=== PATIENT | female | born 1945 | race Caucasian/White ===

== ENCOUNTER → 2017-11-03 15:51 | Outpatient (CLI) | payer MEDICARE, OTHER, SELFPAY | PROVIDERS: Visit Provider Otolaryngology Otolaryngology/Facial Plastic Surgery | DX: J32.9 Chronic sinusitis, unspecified (principal) | CPT/HCPCS: 87070; 87205 ==

== ENCOUNTER → 2018-04-20 12:46 | Outpatient (CLI) | payer MEDICARE, SELFPAY ==
--- NOTE | 2018-04-20 | IMM_PTH ---
PATIENT: HIWOT PALMER LOC: [facility] U#:[id number] AGE/SX: 80/F ROOM: RE04/20/[address]: Dr. Serene Donnelly MD : 1945 BED: DIS: SPEC #: [id number] RECD: 04/25/18 10:26 STATUS: MARTÍN REQ #: [id number] MADHAV: 04/20/18 00:[address]: Serene Donnelly DEPT: IMMUNOHISTOCHEMISTRY RECD BY: Haritha Shepard ENTERED: 04/25/18 10:27 SP TYPE: IMMUNO OTHR DR: Dr. Will Yu MD Tissues: Endometrium, NOS Procedures: CEA (add) CK20 (add) CK7 (add) CK8 (add) KI-67 (add) P53 (add) KY (add) Vimentin (add) Pankeratin (add) ER (initial) PHYSICIAN & INSTITUTION [place] [id number] SPECIMEN INFORMATION: Tissue Source: Endometrial biopsy Clinical Info: Postmenopausal bleeding Specimen Number: [id number] CPT code: 37799, 99964 x9 METHODOLOGY: Deparaffinized sections of prefer/formalin-fixed tissue or PAP/DQ stained slides are incubated with monoclonal/polyclonal antibodies/oligonucleotide probes. Localization is made via biotin free immunoperoxidase method. Appropriate controls are performed and reacted as expected. Results on target cell population are indicated in the following table: RESULTS: ANTIBODY / CLONE RESULT ER (6F11) negative KY (1E2) negative AE1-3 (AE1/AE3/PCK26) positive CK7 (OV-TL12/30) positive CK8 (31ldovH71) positive CK20 (KS20.8) negative Ki-67 (30-9) positive, low to moderate CEA (11-7/TF-3HB-1) negative P53 (DO-7) positive, moderate Vimentin (V9) positive These tests were developed and their performance characteristics determined by [facility]. They may not have been cleared or approved by the U.S. Food and Drug Administration. The FDA has determined that such clearance or approval is not necessary. INTERPRETATION: Endometrial, biopsy: Consistent with high-grade endometrial adenocarcinoma. AM:rosa 04/29/18 Case has been reviewed in consultation with Dr. Trotter who concurs with the above diagnosis. IDC:[email or web address]
--- NOTE | 2018-04-20 | EMB_PTH ---
PATIENT: HIWOT PALMER LOC: [facility] U#:[id number] AGE/SX: 80/F ROOM: RE04/20/[address]: Dr. Serene Donnelly MD : 1945 BED: DIS: SPEC #: [id number] RECD: 04/20/18 16:37 STATUS: MARTÍN DENIS #: [id number] MADHAV: 04/20/18 00:[address]: Serene Donnelly DEPT: SURGICAL PATHOLOGY RECD BY: Torey Lou ENTERED: 04/21/18 11:29 SP TYPE: ENDOM BX/C HARINDER DR: Dr. 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 COMMENT Immunohistochemistry ([id number]) supports the above diagnosis. This case is seen in consultation with Tamera Vásquez of [employer] and the above diagnosis is rendered. The complete consultative report is viewable in patient's EMR. Case has been reviewed in consultation with Dr. Trotter who concurs with the above diagnosis. IDC:KATYA MICROSCOPIC DESCRIPTION Slides are reviewed. GROSS DESCRIPTION Received is one container labeled with the patient's name and not further designated. The specimen consists of multiple fragments of hemorrhagic mucoid tissue that in aggregate measure 1 x 0.5 x 0.1 cm. The specimen is totally submitted in one cassette. / KATYA:rosa 04/21/18 TC:0 CPT: 86660
[2018-04-26 11:23] LABS: HPV APTIMA, High Risk Negative (Negative)
== END ==
PROVIDERS: Family Provider Family Medicine; PCP Family Medicine; Referring Provider Obstetrics & Gynecology; Visit Provider Obstetrics & Gynecology
DX: C54.1 Malignant neoplasm of endometrium (principal); Z12.4 Encounter for screening for malignant neoplasm of cervix
CPT/HCPCS: 87624; 88175; 88305; 88325; 88341; 88342; G0145

== ENCOUNTER → 2018-04-20 18:13 | Outpatient (CLI) | payer MEDICARE, OTHER, SELFPAY ==
--- NOTE | 2018-04-20 18:19 | US_ITS ---
STUDY: ULTRASOUND OF THE PELVIS CLINICAL: Female, 73 years old. Postmenopausal bleeding TECHNIQUE: Transabdominal COMPARISON: None. FINDINGS: Normal uterine size measuring 6.9 x 5 x 1 x 3.2 cm in maximal craniocaudal dimension. There are no myometrial masses. Thickened endometrial lining with questionable mass measuring 3.7 x 3.4 x 2.5 cm. Questionable endometrial fluid collection or cystic structure measuring 1.2 x 1.4 cm. Normal uterine cervix. Nonvisualization of the ovaries. There is no free fluid in the pelvis. The distended urinary bladder has a volume of 520 cc. US/Pelvic (Non ) IMPRESSION: Questionable thickened endometrium versus mass and possible endometrial fluid or cyst. Further evaluation is need. Electronically Signed: Rahul Diop DO at 19:57 EDT Tel [phone], Service support ,
== END ==
PROVIDERS: Family Provider Family Medicine; PCP Family Medicine; Visit Provider Obstetrics & Gynecology
DX: C54.1 Malignant neoplasm of endometrium (principal); N95.0 Postmenopausal bleeding; Z12.4 Encounter for screening for malignant neoplasm of cervix
CPT/HCPCS: 76856; 87624; 88175; 88305; 88325; 88341; 88342; G0145

== ENCOUNTER 2018-04-28 09:10 | Day surgery (SDC) | payer MEDICARE, OTHER, SELFPAY ==
--- NOTE | 2018-04-27 01:41 | PCM.HPOB.BLA ---
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 Is patient in pain?: Yes Allergies No Known Allergies Allergy (Verified 04/20/18 15:00) Medications Atorvastatin Calcium [Lipitor] 20 mg PO QHS 02/17/15 [History Confirmed 04/20/18] L.acidoph,Paracasei, B.lactis [Probiotic] 1 ea PO DAILY 02/17/15 [History Confirmed 04/20/18] Naproxen Sodium [Aleve] 220 mg PO PRN PRN 02/17/15 [History Confirmed 04/20/18] Paroxetine HCl [Paxil] 30 mg PO DAILY 02/17/15 [History Confirmed 04/20/18] Zolpidem Tartrate 5 mg PO DAILY 02/17/15 [History Confirmed 04/20/18] amlodipine 10 mg tablet 10 mg PO QDAY 12/11/17 [History Confirmed 04/20/18] cholecalciferol (vitamin D3) 2,000 unit capsule 2,000 unit PO QDAY 12/11/17 [History Confirmed 04/20/18] diazepam 5 mg tablet PO 30 Days #30 12/11/17 [History Confirmed 04/20/18] magnesium 250 mg tablet 250 mg PO QDAY 12/11/17 [History Confirmed 04/20/18] mecobalamin (vitamin B12) 1,000 mcg disintegrating tablet,sublingual 1,000 mcg SUBLINGUAL QDAY 12/11/17 [History Confirmed 04/20/18] turmeric root extract 500 mg capsule 500 mg PO QDAY 12/11/17 [History Confirmed 04/20/18] Is last menstrual period known: No Post menopausal: Yes Patient : No : No PFSH PFSH Medical History Hyperlipidemia (Chronic) Hypertension (Chronic) BRCA2 gene mutation positive (Acute) Breast cancer (Chronic) Depression (Chronic) Surgical History H/O bilateral oophorectomy (Chronic) History of tonsillectomy (Chronic) Family History Mother Hypertension Father CAD (coronary artery disease) Mother Cancer ovarian Grandmother Breast cancer Social History Smoking Status: Never smoker alcohol intake: current details: social substance use type: does not use caffeine: Yes what type of physical activity do you participate in: walking frequency: 3-4 times per week do you feel safe at home: Yes additional social history: Elyssa Evans are retired Pregancy History 3 Elective abortions Hx Para 3 Spontaneous abortions Hx # Term Pregnancies Ectopic pregnancies Hx # Pregnancies Multiple births # of living children Past Pregnancies Del. Date Name GA/Weeks Outcome Route Bth Weight Gen Labor Lgth Anesthesia Del Locatn Provider FOB Unknown 1970 Ricky Unknown 1973 Alex Unknown 1987 Liseth HPI PMB: Details: HIWOT PALMER is a 73 year old who presents for postmenopausal bleeding since yesterday. she states it it bright red to brown. she has a history of breast cancer. Female Reproductive History Questions: Metorrhagia: No, Sexually active: Yes ROS Const Constitutional: Reports system reviewed and no additional complaints, except as docu; denies chills, fever(s), weight loss or weight gain GI GI: Reports as per HPI; denies vomiting, nausea, constipation, cramping, bloating or abdominal pain : Reports as per HPI; denies vaginal dryness, vaginal discharge, urinary urgency, urinary frequency or urinary incontinence Exam Const General: cooperative, healthy appearing, comfortable, well developed Orientation: alert [facility] Head: normal to inspection Resp Effort & Inspection: normal respiratory effort GI Inspection: normal to inspection, non-distended Palpation: soft, no hepatosplenomegaly, no guarding External Female Exam: normal external appearance, normal appearance of the urethra Urethra: normal appearance of the urethra Speculum Exam - Vagina: normal appearance of the vagina, normal vaginal discharge, no lesions Speculum Exam - Cervix: normal appearance of the cervix, nontender Bimanual Exam- Vagina & Uterus: No cervical tenderness, normal bimanual exam, uterine mobility normal, uterine consistency normal, uterine shape normal, uterine size normal, uterus non-tender Bimanual Exam- Adnexa, other: normal adnexae, no adnexal masses Office Procedures Endometrial Biopsy Endometrial Biopsy Test: Yes Negative Consent Signed: Yes Time out checklist: patient, procedure, site marked/identified, positioning of patient, supplies available, allergies confirmed, team agrees on procedure Time out time: 16:00 tenaculum used: Yes dilator used: No Details: Cervix prepped with betadine and pipelle inserted into uterus without complication. Specimen obtained and sent to lab for analysis. All instruments removed from vagina without complications. Excellent hemostasis noted. Assessment & Plan Problems 1. Postmenopausal bleeding N95.0 plan d and c hysteroscopy symphion Plan discussed with patient recommend ultrasound and emb- done. plan fu based on testing. UPDATE- I have seen the patient and performed any clinically relevant updates to the history and physical exam. Serene Donnelly MD
[2018-04-28] VITALS (7 sets, daily range): BP systolic 110–132; BP diastolic 66–80; PULSE 65–72; RESP 14–16; TEMP 36.6–37; O2SAT 94–100; BMI 24.0
--- NOTE | 2018-04-28 09:24 | EKG12_ITS ---
Test Reason : PRE-OP Blood Pressure : / mmHG Vent. Rate : 063 BPM Atrial Rate : 063 BPM P-R Int : 168 ms QRS Dur : 082 ms QT Int : 452 ms P-R-T Axes : 074 076 071 degrees QTc Int : 462 ms Normal sinus rhythm Normal ECG No previous ECGs available Confirmed by TABITHA MONTES, KRISTINA ([id number]), international editorial producer GAYATHRI SUMMERS ([id number]) on 05/04/2018 2:53:00 PM Referred By: Serene Donnelly Confirmed By:KRISTINA LU MD
[2018-04-28 09:53] LABS: Absolute Lymphocyte Count 1.21 X10^3/ul (0.83-4.51); Absolute Neutrophil Count 2.2 X10^3/uL (2.0-7.7); Basophil# 0.05 X10^3/uL; Basophil% 1.2 % (0-1); Eosinophil# 0.16 X10^3/uL; Eosinophils% 3.8 % (0-5); Hematocrit 41.5 % (37-47); Hemoglobin 13.8 g/dl (12.0-15.0); Lymphocyte # 1.21 X10^3/ul (4.0); Lymphocyte % 28.7 % (19-41); Mean Corp Hgb Conc 33.3 g/gl (32-36); Mean Corpuscular Hgb 30.7 pg (27.0-32.0); Mean Corpuscular Volume 92.4 fL (81-99); Mean Platelet Vol. 9.6 fl (6.2-12.0); Monocyte# 0.57 X10^3/uL; Monocyte% 13.5 % (0-10); Neutrophil # 2.23 X10^3/uL (2.7-7.7); Neutrophil % 52.8 % (47-70); POSITIVE COUNT NO; POSITIVE DIFFERENTIAL NO; POSITIVE MORPHOLOGY NO; Platelet Count 215 K/mm3 (150-450); RBC Distribution Width CV 12.3 % (11.6-14.6); RBC Distribution Width SD 41.6 fl (35.1-43.9); Red Blood Count 4.49 M/mm3 (4.2-5.4); White Blood Count 4.2 K/mm3 (4.4-11.0)
[2018-04-28 09:59] LABS: AST(SGOT) 18 U/L (15-37); Alanine Aminotransfer ALT/SGPT 24 U/L (13-56); Albumin, Serum 3.7 g/dL (3.2-5.0); Alkaline Phosphatase 56 U/L (45-117); Anion Gap 4 (5-15); BUN 13 mg/dL (7-18); BUN/Creat Ratio 14.5 RATIO (10-20); Bilirubin, Direct 0.16 mg/dL (0.00-0.30); Calcium,Total 8.7 mg/dL (8.5-10.1); Chloride 103 mmol/L (98-107); Cholesterol 194 mg/dL (200); EST Glomerular Filtration Rate 66 mL/min (>60); Est Glom Filt Rate - Afr Amer 80 mL/min (>60); Estimated Creatinine Clearance 46.74 ml/min; Globulin 3.7 g/dL (2.2-4.2); Glucose 95 mg/dL (74-106); High Density Lipoprotein 66 mg/dL; Potassium 3.9 mmol/L (3.5-5.1); Protein, Total 7.4 g/dL (6.4-8.2); Sodium Level 140 mmol/L (136-145); Triglycerides 65 mg/dL; Very Low Density Lipoprotein 13 mg/dL (5-40)
--- NOTE | 2018-04-28 10:45 | MASS_PTH ---
PATIENT: HIWOT PALMER LOC[place] [facility] [place][id number] AGE/SX: 73/F ROOM: RE04/28/[address]: Dr. Serene Donnelly MD : 1945 BED: DIS: 04/28/2018 SPEC #: [id number] RECD: 04/29/18 10:22 STATUS: MARTÍN MARIANOXavier #: [id number] MADHAV: 04/28/18 10:[address]: Serene Donnelly DEPT: SURGICAL PATHOLOGY RECD BY: Reena Moser ENTERED: 04/29/18 12:01 SP TYPE: Mass OTHR DR: Dr. Will Yu MD Tissues: Endometrium, NOS Procedures: Surgery Specimen Level IV HEADER OPERATION: Hysteroscopy, D & C, Symphion PRE-OP DIAGNOSIS: Postmenopausal bleeding; endometrial mass TISSUE SUBMITTED: Endometrial mass MICROSCOPIC DIAGNOSIS Endometrial mass, biopsy: High-grade endometrial carcinoma with clear cell features. See comment. SJ:rosa 05/02/18 COMMENT Please make reference to previous specimen ([id number]) endometrial biopsy with diagnosis of high-grade endometrial carcinoma with clear cell features. This tumor in the endometrial curetting specimen has similar morphologic features as previous biopsy specimen. The biopsy specimen was sent to [facility] for expert opinion and reviewed by Dr. Philip. Case has been reviewed in consultation with Dr. Kendall who concurs with the above diagnosis. IDC:AM MICROSCOPIC DESCRIPTION Slides are reviewed. GROSS DESCRIPTION Received in fixative is one container labeled with the patient's name and designated endometrial mass. The specimen consists of multiple irregular fragments of light ugalde-white soft tissue that in aggregate measure 7 x 4 x 1.2 cm. Telemarketing Representative portions are submitted in five cassettes. / AM:rosa 04/29/18 TC:0 CPT: 80215
--- NOTE | 2018-04-28 17:25 | PCM.OPRPT ---
Problem List (1) Postmenopausal bleeding Status: Acute Comment: plan d and c hysteroscopy symphion Report of Operation Date of Procedure: 04/28/18 Pre-Operative Diagnosis: Post menopausal bleeding Post-Operative Diagnosis: Same Surgery/Procedure Performed:: Symphion operative hysteroscopy D&C resection Description of Surgical Findings:: Thickened irregular endometrial lining arising from the left uterine corpus Type of Anesthesia:: Local MAC Special Medications: None Specimen's removed: EMC Drains: None Estimated Blood Loss (mL): Normal Fluids Replaced: Crystalloid, 400 cc deficit Description of Procedure: Patient was prepped and draped in a normal sterile fashion under MAC anesthesia. A weighted speculum was placed in the vagina and the anterior lip of the cervix was grasped with a single-tooth tenaculum. A paracervical block was placed with 1% lidocaine. Cervix was progressively dilated to allow passage of a 5 mm hysteroscope. The lining was fully visualized and noted to have a significant abnormality of thickened endometrium irregularly arising from the left uterine corpus. Uterine sounded to 9 cm. Using the symphion device, the entire abnormal area was progressively removed without complications. Direct visual curettage was performed using the device , and all specimens were sent to pathology. All instruments were removed from the vagina and excellent hemostasis was noted. Patient was awoken and taken to recovery in stable condition. Grafts/Implants Used: None - Complications None
--- NOTE | 2018-04-28 17:28 | DCINST_ITS ---
Discharge Diet: No Restrictions Discharge Activity: Return to Normal Activity, May Shower, May Take a Tub Bath Allergies/Adverse Reactions: Allergies No Known Allergies Allergy (Verified 04/27/18 08:28) Medications to take at Discharge Atorvastatin Calcium [Lipitor] 20 mg PO QHS 02/17/15 Naproxen Sodium [Aleve] 220 mg PO PRN PRN 02/17/15 Paroxetine HCl [Paxil] 30 mg PO QHS 02/17/15 Zolpidem Tartrate 5 mg PO QHS 02/17/15 amlodipine 10 mg tablet 10 mg PO QHS 12/11/17 cholecalciferol (vitamin D3) 2,000 unit capsule 2,000 unit PO MOWEFR 12/11/17 diazepam 5 mg tablet 5 mg PO PRN PRN 30 Days #30 12/11/17 mecobalamin (vitamin B12) 1,000 mcg disintegrating tablet,sublingual 1,000 mcg SUBLINGUAL MOWEFR 12/11/17 turmeric root extract 500 mg capsule 500 mg PO MOWEFR 12/11/17 Primary Care Physician: Will Yu MD [Primary Care Provider] - Test Results: Test results from this visit will be discussed in further detail at your follow- up appointment, if applicable. Please Follow Up With: Serene Donnelly MD - [phone]
== END 2018-04-28 18:29 | disposition home or self-care (01) ==
LOC: SDC 09:12 → AC 09:13
PROVIDERS: Family Provider Family Medicine; PCP Family Medicine; Referring Provider Obstetrics & Gynecology; Visit Provider Obstetrics & Gynecology
PROC: 0UB98ZZ Excision of Uterus, Via Natural or Artificial Opening Endoscopic (ICD-10-PCS; CPT 58558; principal; 2018-04-28 10:30)
DX: C54.1 Malignant neoplasm of endometrium (principal); N95.0 Postmenopausal bleeding; Z79.899 Other long term (current) drug therapy; E78.5 Hyperlipidemia, unspecified; I10 Essential (primary) hypertension; Z85.3 Personal history of malignant neoplasm of breast; F32.9 Major depressive disorder, single episode, unspecified; F41.9 Anxiety disorder, unspecified
CPT/HCPCS: 58558; 36415; 80048; 80061; 80076; 85025; 86850; 86900; 88305; 93005; J7120; J2405

== ENCOUNTER → 2018-09-05 10:57 | Outpatient (CLI) | payer MEDICARE, OTHER, SELFPAY ==
[2018-04-28 09:34] VITALS: BMI 24.0
[2018-09-06 10:00] LABS: Cancer Antigen 125 8.6 U/mL (0.0-38.1)
== END ==
PROVIDERS: Family Provider Family Medicine; PCP Family Medicine; Referring Provider Obstetrics & Gynecology Gynecologic Oncology; Visit Provider Obstetrics & Gynecology Gynecologic Oncology
DX: C54.1 Malignant neoplasm of endometrium (principal)
CPT/HCPCS: 36415; 86304

== ENCOUNTER → 2018-12-10 | Outpatient (CLI) | payer MEDICARE, OTHER, SELFPAY ==
[2018-04-28 09:34] VITALS: BMI 24.0
[2018-12-08 10:08] VITALS: BMI 24.3
[2018-12-10 09:40] LABS: AST(SGOT) 26 U/L (15-37); Alanine Aminotransfer ALT/SGPT 27 U/L (13-56); Albumin, Serum 4.3 g/dL (3.2-5.0); Alkaline Phosphatase 56 U/L (45-117); Bilirubin, Direct 0.11 mg/dL (0.00-0.30); Cholesterol 225 mg/dL (200); Globulin 3.3 g/dL (2.2-4.2); High Density Lipoprotein 83 mg/dL; Protein, Total 7.6 g/dL (6.4-8.2); Triglycerides 95 mg/dL; Very Low Density Lipoprotein 19 mg/dL (5-40)
[2018-12-11 09:32] LABS: Cancer Antigen 125 9.8 U/mL (0.0-38.1)
== END | disposition home or self-care (01) ==
PROVIDERS: Family Provider Family Medicine; PCP Family Medicine; Referring Provider Internal Medicine Cardiovascular Disease; Visit Provider Internal Medicine Cardiovascular Disease
DX: C54.1 Malignant neoplasm of endometrium (principal); E78.5 Hyperlipidemia, unspecified
CPT/HCPCS: 36415; 80061; 80076; 86304

== ENCOUNTER → 2019-02-21 | Outpatient (CLI) | payer MEDICARE, OTHER, SELFPAY ==
[2018-12-08 10:08] VITALS: BMI 24.3
--- NOTE | 2019-02-21 09:58 | ECHOD_ITS ---
Reason For Study: HTN Procedure This was a 2D Doppler, Color Flow transthoracic echocardiogram. Myocardial strain analysis was performed in this exam to aid in the assessment of cardiac function. The study was technically difficult. Exam performed in department. Left Ventricle Normal LV size. Left ventricular systolic function is normal. The estimated ejection fraction is 65 %. No evidence for diastolic dysfunction. No regional wall motion abnormalities noted. Right Ventricle Normal RV size. Normal systolic function. Atria Normal left atrium. Normal right atrium. Mitral Valve Normal mitral valve. Tricuspid Valve Normal tricuspid valve. Aortic Valve Normal aortic valve. Trisinus/trileaflet aortic valve. Pulmonic Valve Normal pulmonic valve. Great Vessels Normal aortic root. The pulmonary artery is normal size. Normal inferior vena cava. Pericardium/Pleural No pericardial effusion. MMode/2D Measurements & Calculations LVIDd: 3.5 cm IVSd: 0.78 cm Ao root diam: 2.3 cm LVIDs: 2.2 cm LVPWd: 0.82 cm RVDd: 2.9 cm FS: 36.2 % LAV(MOD-bp): 28.5 ml LVAd ap4: 18.1 cm2 SV(MOD-sp4): 24.7 ml LAV(MOD-bp) Indexed: 17.7 ml/m2 EDV(MOD-sp4): 40.7 ml LAV(MOD-sp2): 21.3 ml EDV(sp4-el): 40.8 ml LAV(MOD-sp4): 33.0 ml LVAs ap4: 10.6 cm2 ESV(MOD-sp4): 16.0 ml ESV(sp4-el): 16.0 ml EF(MOD-sp4): 60.8 % EF(sp4-el): 60.9 % SV(sp4-el): 24.8 ml LA A4 area: 14.4 cm2 LA dimension(2D): 2.8 cm RA A4 area: 13.2 cm2 Time Measurements MV dec time: 0.38 sec Doppler Measurements & Calculations MV E max dev: 70.3 cm/sec Lat Peak E' Dev: 6.5 cm/sec Med Peak E' Dev: 7.8 cm/sec MV A max dev: 99.0 cm/sec E/E' lat: 10.8 E/E' med: 9.0 MV E/A: 0.71 Ao V2 max: 107.3 cm/sec LV V1 max: 102.0 cm/sec TR max dev: 228.8 cm/sec Ao max P.6 mmHg LV V1 max P.2 mmHg TR max P.0 mmHg Interpretation Summary Normal LV size. Left ventricular systolic function is normal. The estimated ejection fraction is 65 %. No evidence for diastolic dysfunction. The global longitudinal strain is normal. The global longitudinal strain = -21.3 % (normal). Structurally normal valves. Ordering Physician: Bronson Norris Referring Physician: MARTA SUMMERS Performed By: Cayla Lipscomb, RAÚL, RVT
== END | disposition home or self-care (01) ==
LOC: CVS 09:57
PROVIDERS: Family Provider Family Medicine; PCP Family Medicine; Referring Provider Internal Medicine Cardiovascular Disease; Visit Provider Internal Medicine Cardiovascular Disease
DX: I49.1 Atrial premature depolarization (principal)
CPT/HCPCS: 93306

== ENCOUNTER → 2019-05-03 10:19 | Outpatient (CLI) | payer MEDICARE, OTHER, SELFPAY ==
[2018-12-08 10:08] VITALS: BMI 24.3
[2019-05-03 13:29] LABS: BUN 12 mg/dL (7-18); Creatinine, Serum 0.98 mg/dL (0.55-1.02); EST Glomerular Filtration Rate 59 mL/min (>60); Est Glom Filt Rate - Afr Amer 71 mL/min (>60)
[2019-05-04 14:54] LABS: Cancer Antigen 125 10.4 U/mL (0.0-38.1)
== END ==
PROVIDERS: Family Provider Family Medicine; PCP Family Medicine; Referring Provider Obstetrics & Gynecology Gynecologic Oncology; Visit Provider Obstetrics & Gynecology Gynecologic Oncology
DX: C54.1 Malignant neoplasm of endometrium (principal)
CPT/HCPCS: 36415; 82565; 84520; 86304

== ENCOUNTER → 2019-05-12 16:16 | Outpatient (CLI) | payer MEDICARE, OTHER, SELFPAY ==
[2018-12-08 10:08] VITALS: BMI 24.3
== END ==
PROVIDERS: Family Provider Family Medicine; PCP Family Medicine; Referring Provider Otolaryngology Otolaryngology/Facial Plastic Surgery; Visit Provider Otolaryngology Otolaryngology/Facial Plastic Surgery
DX: J32.9 Chronic sinusitis, unspecified (principal)
CPT/HCPCS: 87070; 87077; 87186; 87205

== ENCOUNTER → 2019-05-29 15:54 | Outpatient (CLI) | payer MEDICARE, OTHER, SELFPAY ==
[2018-12-08 10:08] VITALS: BMI 24.3
--- NOTE | 2019-05-29 15:58 | CT_ITS ---
STUDY: CT MAXILLOFACIAL SINUSES REASON FOR EXAM: Female, 74 years old. Sinusitis, bloody nasal discharge RADIATION DOSAGE (If Supplied By Facility): CTDIvol = ( 33.06 ) mGy, DLP = ( 755.34 ) mGycm TECHNIQUE: The patient was scanned in a multi detector CT scanner. High resolution axial imaging was performed without the administration of intravenous contrast material. Sagittal and coronal images were reconstructed. Individualized dose optimization techniques were used for this CT. COMPARISON: None. FINDINGS: FRONTAL SINUSES: Normal aeration, without mucosal inflammatory disease. ETHMOIDAL SINUSES: Normal aeration, without mucosal inflammatory disease. MAXILLARY SINUSES: Normal aeration, without mucosal inflammatory disease. SPHENOIDAL SINUSES: Normal aeration, without mucosal inflammatory disease. There is patency of the bilateral maxillary infundibuli with normal uncinate processes, ethmoid bullae, and hiatus semilunaris. Normal bilateral middle turbinates. Normal bilateral inferior turbinates. Normal midline nasal septum. There is patency of the bilateral nasal airways. The visualized osseous structures are normal. The visualized bilateral orbital contents are normal. CT/Sinus/Facial Bone IMPRESSION: Normal CT examination of the maxillofacial sinuses. Electronically Signed: Matthew Flores, at 16:21 EST Tel , Service support ,
== END ==
PROVIDERS: Family Provider Family Medicine; PCP Family Medicine; Referring Provider Otolaryngology Otolaryngology/Facial Plastic Surgery; Visit Provider Otolaryngology Otolaryngology/Facial Plastic Surgery
DX: J32.9 Chronic sinusitis, unspecified (principal); R04.0 Epistaxis
CPT/HCPCS: 70486

== ENCOUNTER → 2019-08-11 07:28 | Outpatient (CLI) | payer MEDICARE, OTHER, SELFPAY ==
[2018-12-08 10:08] VITALS: BMI 24.3
[2019-08-11 08:22] LABS: AST(SGOT) 25 U/L (15-37); Alanine Aminotransfer ALT/SGPT 31 U/L (13-56); Albumin, Serum 4.3 g/dL (3.2-5.0); Alkaline Phosphatase 60 U/L (45-117); Bilirubin, Direct 0.13 mg/dL (0.00-0.30); Cholesterol 265 mg/dL (200); Globulin 3.5 g/dL (2.2-4.2); High Density Lipoprotein 75 mg/dL; Protein, Total 7.8 g/dL (6.4-8.2); Triglycerides 102 mg/dL; Very Low Density Lipoprotein 20 mg/dL (5-40)
[2019-08-12 10:40] LABS: Cancer Antigen 125 9.1 U/mL (0.0-38.1)
== END ==
PROVIDERS: Internal Medicine Cardiovascular Disease; PCP Family Medicine; Referring Provider Obstetrics & Gynecology Gynecologic Oncology; Visit Provider Obstetrics & Gynecology Gynecologic Oncology
DX: E78.5 Hyperlipidemia, unspecified (principal); C54.1 Malignant neoplasm of endometrium
CPT/HCPCS: 36415; 80061; 80076; 86304

== ENCOUNTER → 2020-04-03 08:46 | Outpatient (CLI) | payer MEDICARE, OTHER, SELFPAY ==
[2018-12-08 10:08] VITALS: BMI 24.3
[2020-04-03 09:47] LABS: Microalbumin,Random Urine 8.5 mg/L (NO RANGE EST.)
[2020-04-03 09:54] LABS: Anion Gap 4 (5-15); BUN 14 mg/dL (7-18); BUN/Creat Ratio 15.4 RATIO (10-20); Calcium,Total 8.9 mg/dL (8.5-10.1); Chloride 102 mmol/L (98-107); Creatinine, Serum 0.91 mg/dL (0.55-1.02); EST Glomerular Filtration Rate 64 mL/min (>60); Est Glom Filt Rate - Afr Amer 78 mL/min (>60); Glucose 110 mg/dL (74-106); Potassium 3.7 mmol/L (3.5-5.1); Sodium Level 137 mmol/L (136-145)
[2020-04-03 09:56] LABS: AST(SGOT) 20 U/L (15-37); Alanine Aminotransfer ALT/SGPT 29 U/L (13-56); Albumin, Serum 4.1 g/dL (3.2-5.0); Alkaline Phosphatase 73 U/L (45-117); Bilirubin, Direct 0.13 mg/dL (0.00-0.30); Cholesterol 246 mg/dL (200); High Density Lipoprotein 82 mg/dL; Protein, Total 8.1 g/dL (6.4-8.2); Triglycerides 85 mg/dL; Very Low Density Lipoprotein 17 mg/dL (5-40)
[2020-04-04 05:13] LABS: Cancer Antigen 125 9.4 U/mL (0.0-38.1)
== END ==
PROVIDERS: PCP Family Medicine; Visit Provider Internal Medicine Cardiovascular Disease
DX: E78.00 Pure hypercholesterolemia, unspecified (principal); E78.5 Hyperlipidemia, unspecified; I10 Essential (primary) hypertension; C54.1 Malignant neoplasm of endometrium
CPT/HCPCS: 36415; 80048; 80061; 80076; 82043; 86304

== ENCOUNTER → 2020-09-09 08:51 | Outpatient (CLI) | payer MEDICARE, OTHER, SELFPAY ==
[2018-12-08 10:08] VITALS: BMI 24.3
[2020-09-06 10:51] VITALS: BMI 23.0
[2020-09-09 09:20] LABS: Absolute Lymphocyte Count 1.54 X10^3/uL (0.83-4.51); Absolute Neutrophil Count 2.1 X10^3/uL (2.0-7.7); Basophil# 0.05 X10^3/uL; Basophil% 1.1 % (0-1); Eosinophil# 0.29 X10^3/uL; Eosinophils% 6.5 % (0-5); Hemoglobin 14.1 g/dL (12.0-15.0); Lymphocyte # 1.54 X10^3/ul (4.0); Lymphocyte % 34.3 % (19-41); Mean Corp Hgb Conc 32.8 g/dL (32-36); Mean Corpuscular Volume 94.5 fL (81-99); Mean Platelet Vol. 9.6 fl (6.2-12.0); Monocyte# 0.54 X10^3/uL; NRBC Flagged by Analyzer 0 % (0-5); Neutrophil # 2.06 X10^3/uL (2.7-7.7); Neutrophil % 45.9 % (47-70); Platelet Count 245 K/mm3 (150-450); RBC Distribution Width CV 11.9 % (11.6-14.6); RBC Distribution Width SD 41.6 fl (35.1-43.9); Red Blood Count 4.55 M/mm3 (4.2-5.4); White Blood Count 4.5 K/mm3 (4.4-11.0)
[2020-09-09 09:52] LABS: AST(SGOT) 26 U/L (15-37); Alanine Aminotransfer ALT/SGPT 28 U/L (13-56); Albumin, Serum 4.3 g/dL (3.2-5.0); Alkaline Phosphatase 75 U/L (45-117); Anion Gap 4 (5-15); BUN 12 mg/dL (7-18); BUN/Creat Ratio 12.4 RATIO (10-20); Bilirubin, Direct 0.12 mg/dL (0.00-0.30); Calcium,Total 8.8 mg/dL (8.5-10.1); Chloride 102 mmol/L (98-107); Cholesterol 197 mg/dL (200); Creatinine, Serum 0.97 mg/dL (0.55-1.02); EST Glomerular Filtration Rate 60 mL/min (>60); Est Glom Filt Rate - Afr Amer 72 mL/min (>60); Globulin 3.5 g/dL (2.2-4.2); Glucose 103 mg/dL (74-106); High Density Lipoprotein 78 mg/dL; Magnesium 2.4 mg/dL (1.6-2.6); Potassium 3.7 mmol/L (3.5-5.1); Protein, Total 7.8 g/dL (6.4-8.2); Sodium Level 137 mmol/L (136-145); Thyroid Stim Hormone (TSH) 1.91 uIU/mL (0.358-3.74); Triglycerides 71 mg/dL; Very Low Density Lipoprotein 14 mg/dL (5-40)
== END ==
PROVIDERS: Internal Medicine Cardiovascular Disease; PCP Family Medicine; Referring Provider Obstetrics & Gynecology Gynecologic Oncology; Visit Provider Obstetrics & Gynecology Gynecologic Oncology
DX: C54.1 Malignant neoplasm of endometrium (principal); E78.00 Pure hypercholesterolemia, unspecified; E78.5 Hyperlipidemia, unspecified; I10 Essential (primary) hypertension; Z87.898 Personal history of other specified conditions
CPT/HCPCS: 36415; 80048; 80061; 80076; 83735; 84443; 85025; 86304

== ENCOUNTER → 2020-12-04 10:32 | Outpatient (CLI) | payer MEDICARE, OTHER, SELFPAY ==
[2020-09-06 10:51] VITALS: BMI 23.0
[2020-12-04 11:55] LABS: BUN 14 mg/dL (7-18); Creatinine, Serum 0.95 mg/dL (0.55-1.02); EST Glomerular Filtration Rate 61 mL/min (>60); Est Glom Filt Rate - Afr Amer 74 mL/min (>60)
== END ==
PROVIDERS: PCP Family Medicine; Referring Provider Obstetrics & Gynecology Gynecologic Oncology; Visit Provider Obstetrics & Gynecology Gynecologic Oncology
DX: C54.1 Malignant neoplasm of endometrium (principal)
CPT/HCPCS: 36415; 82565; 84520

== ENCOUNTER → 2021-02-16 11:59 | Outpatient (CLI) | payer MEDICARE, OTHER, SELFPAY | PROVIDERS: PCP Family Medicine; Visit Provider Physician Assistant | DX: Z11.52 Encounter for screening for COVID-19 (principal) | CPT/HCPCS: 87635; U0005; U0003 ==

== ENCOUNTER → 2021-04-23 08:36 | Outpatient (CLI) | payer MEDICARE, OTHER, SELFPAY ==
[2020-09-06 10:51] VITALS: BMI 23.0
[2021-04-23 10:55] LABS: Absolute Lymphocyte Count 1.43 X10^3/uL (0.83-4.51); Absolute Neutrophil Count 2.3 X10^3/uL (2.0-7.7); Basophil# 0.07 X10^3/uL; Basophil% 1.5 % (0-1); Eosinophil# 0.21 X10^3/uL; Eosinophils% 4.6 % (0-5); Hematocrit 43.3 % (37-47); Hemoglobin 14.2 g/dL (12.0-15.0); Lymphocyte # 1.43 X10^3/ul (0.83-4.51); Mean Corp Hgb Conc 32.8 g/dL (32-36); Mean Corpuscular Volume 94.5 fL (81-99); Mean Platelet Vol. 10.4 fl (6.2-12.0); Monocyte# 0.64 X10^3/uL; Monocyte% 13.9 % (0-10); NRBC Flagged by Analyzer 0 % (0-5); Neutrophil # 2.25 X10^3/uL (2.7-7.7); Neutrophil % 48.8 % (47-70); Platelet Count 238 K/mm3 (150-450); RBC Distribution Width CV 11.9 % (11.6-14.6); RBC Distribution Width SD 41.7 fl (35.1-43.9); Red Blood Count 4.58 M/mm3 (4.2-5.4); White Blood Count 4.6 K/mm3 (4.4-11.0)
[2021-04-23 11:19] LABS: AST(SGOT) 29 U/L (15-37); Alanine Aminotransfer ALT/SGPT 26 U/L (13-56); Albumin, Serum 4.1 g/dL (3.2-5.0); Alkaline Phosphatase 63 U/L (45-117); Bilirubin, Direct 0.13 mg/dL (0.00-0.30); Cholesterol 214 mg/dL (200); Globulin 3.7 g/dL (2.2-4.2); High Density Lipoprotein 91 mg/dL; Protein, Total 7.8 g/dL (6.4-8.2); Triglycerides 60 mg/dL; Very Low Density Lipoprotein 12 mg/dL (5-40)
[2021-04-24 09:53] LABS: Cancer Antigen 125 10.6 U/mL (0.0-38.1)
== END ==
PROVIDERS: Internal Medicine Cardiovascular Disease; PCP Family Medicine; Referring Provider Obstetrics & Gynecology Gynecologic Oncology; Visit Provider Obstetrics & Gynecology Gynecologic Oncology
DX: C54.1 Malignant neoplasm of endometrium (principal); E78.5 Hyperlipidemia, unspecified; E78.00 Pure hypercholesterolemia, unspecified
CPT/HCPCS: 36415; 80061; 80076; 85025; 86304

== ENCOUNTER → 2021-06-02 11:59 | Outpatient (CLI) | payer MEDICARE, OTHER, SELFPAY ==
--- NOTE | 2021-06-02 12:02 | RAD_ITS ---
STUDY: XR Wrist Min 3 Views REASON FOR EXAM: Female, 76 years old. PAIN TECHNIQUE: XR Wrist Min 3 Views COMPARISON: None. FINDINGS: There are no acute findings of the visualized distal radius and ulna. There are no acute findings of the radiocarpal articulation. Normal distal radioulnar articulation. Normal carpal bones. Normal carpal articulations. There are no acute findings of the carpometacarpal articulation of the thumb. Normal second through fifth carpometacarpal articulations. There are no acute findings of the visualized metacarpal bones. The soft tissue structures are unremarkable. RAD/Wrist min 3 Views IMPRESSION: There are no acute findings of the wrist. Electronically Signed: Angel Matamoros MD at 14:18 EST , Service support ,
--- NOTE | 2021-06-02 12:02 | RAD_ITS ---
STUDY: X-RAY XR Forearm 2 Views REASON FOR EXAM: Female, 76 years old. PAIN Technologist Notes pain after lifting heavy bag 2 months ago TECHNIQUE: XR Forearm 2 Views COMPARISON: None. FINDINGS: There is no demonstrated soft tissue swelling. Normal visualized radius. There is irregularity of the coronoid process. This may suggest an acute fracture. This is noted on the lateral projection. RAD/Forearm 2 Views IMPRESSION: There is irregularity of the coronoid process. This may suggest an acute fracture. Electronically Signed: Angel Matamoros MD at 14:18 EST , Service support ,
== END ==
PROVIDERS: PCP Family Medicine; Referring Provider Nurse Practitioner Family; Visit Provider Nurse Practitioner Family
DX: M25.532 Pain in left wrist (principal)
CPT/HCPCS: 73090; 73110

== ENCOUNTER 2021-10-07 07:56 | Outpatient (CLI) | payer MEDICARE, OTHER, SELFPAY ==
[2021-10-07 08:33] LABS: AST(SGOT) 20 U/L (15-37); Alanine Aminotransfer ALT/SGPT 24 U/L (13-56); Albumin, Serum 4.1 g/dL (3.2-5.0); Alkaline Phosphatase 73 U/L (45-117); Bilirubin, Direct 0.07 mg/dL (0.00-0.30); Cholesterol 201 mg/dL (200); Globulin 3.8 g/dL (2.2-4.2); High Density Lipoprotein 65 mg/dL; Protein, Total 7.9 g/dL (6.4-8.2); Triglycerides 91 mg/dL; Very Low Density Lipoprotein 18 mg/dL (5-40)
[2021-10-09 15:59] LABS: Cancer Antigen 125 11.5 U/mL (0.0-38.1)
== END 2021-10-07 23:59 | disposition home or self-care (01) ==
PROVIDERS: Internal Medicine Cardiovascular Disease; PCP Family Medicine; Referring Provider Obstetrics & Gynecology Gynecologic Oncology; Visit Provider Obstetrics & Gynecology Gynecologic Oncology
DX: C54.1 Malignant neoplasm of endometrium (principal); E78.5 Hyperlipidemia, unspecified
CPT/HCPCS: 36415; 80061; 80076; 86304

== ENCOUNTER 2021-10-07 10:44 | Outpatient (CLI) | payer MEDICARE, OTHER, SELFPAY ==
--- NOTE | 2021-10-07 10:49 | BD_ITS ---
STUDY: DUAL ENERGY X-RAY ABSORPTIOMETRY / DXA REASON FOR EXAM: Female, 76 years old. Z780. The patient is postmenopausal. TECHNIQUE: Bone Mineral Density (BMD) measurements of lumbar spine and bilateral hips were obtained. COMPARISON: Comparison is made with prior study dated 12/28/2013. FINDINGS: Lumbar Spine (L1-L4): g/cm2 (1.319) / T-score (2.5) / Z-score (4.9) Findings are suggestive of normal bone density with a low fracture risk. Left Femur Total: g/cm2 (0.902) / T-score (-0.3) / Z-score (1.5) Left Femoral Neck: g/cm2 (0.849) / T-score (0.0) / Z-score (2.1) Right Femur Total: g/cm2 (0.941) / T-score (0.0) / Z-score (1.8) Right Femoral Neck: g/cm2 (0.864) / T-score (0.1) / Z-score (2.2) The T-Scores on the most recent prior examination were: Lumbar Spine (L1-L4): There has been worsening of bone density since the previous examination. Left Femur Total: which represents a worsening of 9.6%. Right Femur Total: which represents a worsening of 6.1%. BD/Dexa Bone Density Study IMPRESSION: The patient is considered osteopenic as outlined below according to World Momo Organization (WHO) criteria with a low fracture risk. There has been worsening of bone density since the previous examination. Reference Information: The T-score is the number of standard deviations above or below the standard which is normal for young adults at their peak bone mineral density. The World Health Organization (WHO) interprets the T-scores as follows: Above -1 Normal bone density Between -1 and -2.5 Osteopenia Equal to / or below -2.5 Osteoporosis As a practical clinical guideline, osteopenia may be graded as follows: Mild -1 through -1.5 Moderate -1.6 through -2.0 Severe -2.1 through -2.4 The Z-score is the number of standard deviations above or below age-matched controls. A Z-score of less than -1.5 would be considered abnormal. References: 1. NIH Osteoporosis and Related Bone Diseases www osteo.org 2. International Society for Clinical Densitometry www iscd.org 3. National Osteoporosis Foundation www nof.org Electronically Signed: Otoniel Salazar MD at 15:18 EDT ,
== END 2021-10-07 23:59 | disposition home or self-care (01) ==
PROVIDERS: PCP Family Medicine; Visit Provider Family Medicine
DX: Z00.00 Encounter for general adult medical examination without abnormal findings (principal); C54.1 Malignant neoplasm of endometrium; Z78.0 Asymptomatic menopausal state; E78.5 Hyperlipidemia, unspecified
CPT/HCPCS: 36415; 77080; 80061; 80076; 86304

== ENCOUNTER → 2022-03-04 | Outpatient (CLI) | payer MEDICARE, OTHER, SELFPAY ==
[2022-03-04 10:17] LABS: AST(SGOT) 30 U/L (15-37); Alanine Aminotransfer ALT/SGPT 48 U/L (13-56); Alkaline Phosphatase 71 U/L (45-117); Bilirubin, Direct 0.09 mg/dL (0.00-0.30); Cholesterol 183 mg/dL (200); High Density Lipoprotein 70 mg/dL; Triglycerides 92 mg/dL; Very Low Density Lipoprotein 18 mg/dL (5-40)
[2022-03-05 16:33] LABS: Cancer Antigen 125 9.6 U/mL (0.0-38.1)
== END | disposition home or self-care (01) ==
PROVIDERS: PCP Family Medicine; Referring Provider Obstetrics & Gynecology Gynecologic Oncology; Visit Provider Internal Medicine Cardiovascular Disease
DX: C54.1 Malignant neoplasm of endometrium (principal); E78.00 Pure hypercholesterolemia, unspecified
CPT/HCPCS: 36415; 80061; 80076; 86304

== ENCOUNTER → 2022-06-13 | Outpatient (CLI) | payer MEDICARE, OTHER, SELFPAY ==
[2022-06-13 12:36] LABS: Anion Gap 4 (5-15); BUN 19 mg/dL (7-18); BUN/Creat Ratio 22.9 RATIO (10-20); Calcium,Total 9.2 mg/dL (8.5-10.1); Chloride 104 mmol/L (98-107); Creatinine, Serum 0.83 mg/dL (0.55-1.02); EST Glomerular Filtration Rate 71 mL/min (>60); Est Glom Filt Rate - Afr Amer 86 mL/min (>60); Glucose 104 mg/dL (74-106); Potassium 4.6 mmol/L (3.5-5.1); Sodium Level 139 mmol/L (136-145)
[2022-06-16 12:47] LABS: Cancer Antigen 125 9.2 U/mL (0.0-38.1)
== END | disposition home or self-care (01) ==
LOC: LAB 09:54
PROVIDERS: PCP Family Medicine
DX: C54.1 Malignant neoplasm of endometrium (principal); R10.30 Lower abdominal pain, unspecified
CPT/HCPCS: 36415; 80048; 86304

== ENCOUNTER → 2022-09-09 | Outpatient (CLI) | payer MEDICARE, OTHER, SELFPAY ==
--- NOTE | 2022-09-09 13:00 | RAD_ITS ---
STUDY: X-RAY - LUMBAR SPINE REASON FOR EXAM: Female, 77 years old. BACK PAIN TECHNIQUE: 4 view(s) of the lumbar spine were obtained. COMPARISON: 2013 FINDINGS: Normal lumbar lordosis. There is a mild dextroscoliosis of the lumbar spine. There is a normal alignment of the vertebrae from L1 to L5. There is a bilateral pars defect and grade 2 spondylolisthesis at L5/S1.. There is multilevel endplate spondylosis of the lumbar vertebrae. There is multi-level degenerative disc disease with multi-level disc space narrowing. There is no demonstrated fracture. No instability on flexion or extension views, range of motion is limited. The soft tissue structures are unremarkable. RAD/L/S Spine Min 4 Views IMPRESSION: Multilevel degenerative changes without acute fracture or suspicious osseous lesion Stable bilateral pars defect and grade 2 spondylolisthesis at L5/S1 Electronically Signed: Kimani Tinajero MD at 13:22 EDT ,
== END | disposition home or self-care (01) ==
LOC: RAD 12:50
PROVIDERS: PCP Family Medicine; Visit Provider Anesthesiology Pain Medicine
DX: M54.9 Dorsalgia, unspecified (principal)
CPT/HCPCS: 72110

== ENCOUNTER → 2022-09-30 | Outpatient (CLI) | payer MEDICARE, OTHER, SELFPAY ==
--- NOTE | 2022-09-30 11:05 | MRI_ITS ---
INDICATION: Low back pain, lumbar radiculopathy. EXAMINATION: MR Spine Lumbar W/O Contrast TECHNIQUE: Multiplanar and multisequence MR images of the lumbar spine. IV Contrast Dosage and Agent: None. COMPARISON: Lumbar spine x-rays September 09, 2022. February 05, 2014 lumbar spine x-rays. FINDINGS: VERTEBRAE: Bilateral L5 pars interarticularis defects. Chronic and/or developmental posterior wedging deformity of the L5 vertebral body. No marrow edema. No acute compression fracture. Modic endplate changes, Schmorl''s node formation and vacuum phenomenon from L2-3 through L5-S1. VERTEBRAL ALIGNMENT: Grade 2 anterolisthesis of L5 upon S1. Grade 1 anterolisthesis of L4 upon L5. There is mild rightward curvature of the lumbar spine. CORD: Normal position and signal intensity of the conus medullaris. Conus terminates at the lower L1 vertebral body level. SOFT TISSUES: Aorta is normal in caliber. Visualized kidneys without hydronephrosis. Mild atrophy of the paraspinous musculature. Axial images: L1-2: Minimal disc bulging. There is moderate to severe facet arthropathy and ligamentum flavum thickening. There is no significant spinal canal or foraminal narrowing. L2-3: Diffuse disc bulging. Moderate to severe facet arthropathy and ligamentum flavum thickening. Mild spinal canal stenosis and mild bilateral foraminal narrowing. L3-4: Mild, diffuse disc bulging. Moderate to severe facet arthropathy and ligamentum flavum thickening. Mild spinal canal narrowing and mild left foraminal narrowing. L4-5: Disc uncovering/diffuse disc bulging and moderate to severe facet arthropathy. Prominent anterior epidural fat. No significant spinal canal narrowing. There is mild bilateral foraminal narrowing. L5-S1: Extensive epidural fat encasing the thecal sac. Severe facet arthropathy. Increased AP distance of the central canal associated with the pars interarticularis defects anterolisthesis. Severe bilateral foraminal narrowing with mass effect upon the L5 nerve root. MRI/Spine Lumbar (Routine) IMPRESSION: L5 spondylolysis with grade 2 spondylolisthesis and severe foraminal narrowing. Prominent epidural fat, most significant at the L5-S1 level. Grade 1 anterolisthesis of L4 upon L5. Other spondylosis changes as described. Electronically Signed: Jay Aguila MD at 9:06 EDT ,
== END | disposition home or self-care (01) ==
PROVIDERS: PCP Family Medicine; Referring Provider Anesthesiology Pain Medicine; Visit Provider Anesthesiology Pain Medicine
DX: M54.16 Radiculopathy, lumbar region (principal)
CPT/HCPCS: 72148

== ENCOUNTER → 2022-10-24 | Outpatient (CLI) | payer MEDICARE, OTHER, SELFPAY ==
--- NOTE | 2022-10-24 07:45 | MRI_ITS ---
EXAM: MR RIGHT LOWER EXTREMITY WITHOUT INTRAVENOUS CONTRAST, HIP CLINICAL INDICATION: pain TECHNIQUE: Multiplanar and multisequence MR images of the right hip without intravenous contrast. COMPARISON: No relevant prior studies available. FINDINGS: TENDONS: FLEXORS: Unremarkable. Intact. EXTENSORS/HAMSTRING: Unremarkable. Intact. ABDUCTORS: Unremarkable. Intact. ADDUCTORS: Unremarkable. Intact. ROTATORS: Unremarkable. Intact. MUSCLES: Muscles are normal. FLUID: Moderate right hip joint effusion with small left hip joint effusion. Mild trochanteric bursitis. LABRUM: Right anterior degenerative type labral tear. CARTILAGE: See below. BONES/JOINTS: At least moderate right hip osteoarthrosis with subchondral cysts on both sides articulation anteriorly/superiorly. Severe degenerative disease at L4-5 and L5-S1. Subchondral cysts at the right acetabular roof. No avascular necrosis of the femoral head. No sacral insufficiency fracture. No suspicious bone marrow signal alteration. No osteoporosis involving the femoral heads. No significant arthritic changes or focal chondral defects. OTHER SOFT TISSUES: Unremarkable. INTRAPERITONEAL SPACE: No free fluid in the pelvis. This appearance of the bladder without wall thickening. OTHER Neurovascular structures are unremarkable. MRI/Lower Ext Joint Only (Routine) IMPRESSION: 1. Right anterior labral tear, degenerative in nature. 2. Moderate size right hip joint effusion with small left hip joint effusion. No significant synovitis or intra-articular ossific bodies. Electronically Signed: Wicho Mclaughlin MD at 4:53 EDT Reading Location ID and State: [address] [place] [address] Tel , Service support ,
--- NOTE | 2022-10-24 08:30 | MRI_ITS ---
EXAM: MR LEFT LOWER EXTREMITY WITHOUT INTRAVENOUS CONTRAST, HIP CLINICAL INDICATION: pain TECHNIQUE: Multiplanar and multisequence MR images of the left hip without intravenous contrast. COMPARISON: No relevant prior studies available. FINDINGS: TENDONS: FLEXORS: Unremarkable. Intact. EXTENSORS/HAMSTRING: Unremarkable. Intact. ABDUCTORS: Unremarkable. Intact. ADDUCTORS: Unremarkable. Intact. ROTATORS: Unremarkable. Intact. MUSCLES: Muscles are normal. FLUID: Moderate right hip joint effusion with small left hip joint effusion. No trochanteric bursitis. LABRUM: Left anterior labral tear. CARTILAGE: See below. BONES/JOINTS: Severe degenerative disease at L4-5 and L5-S1. Subchondral cysts at the right acetabular roof. No avascular necrosis of the femoral head. No sacral insufficiency fracture. No suspicious bone marrow signal alteration. No osteoporosis involving the femoral heads. No significant arthritic changes or focal chondral defects. OTHER SOFT TISSUES: Unremarkable. INTRAPERITONEAL SPACE: No free fluid in the pelvis. This appearance of the bladder without wall thickening. OTHER FINDINGS: Neurovascular structures are unremarkable. MRI/Lower Ext Joint Only (Routine) IMPRESSION: 1. Left anterior labral tear. 2. Moderate right hip joint effusion with small left hip joint effusion. Electronically Signed: Wicho Mclaughlin MD at 4:46 EDT ,
== END | disposition home or self-care (01) ==
LOC: MRI 08:07
PROVIDERS: PCP Family Medicine; Referring Provider Orthopaedic Surgery; Visit Provider Orthopaedic Surgery
DX: M16.11 Unilateral primary osteoarthritis, right hip (principal); M25.552 Pain in left hip
CPT/HCPCS: 73721

== ENCOUNTER → 2022-11-13 | Outpatient (CLI) | payer MEDICARE, OTHER, SELFPAY ==
[2022-11-13 09:02] LABS: AST(SGOT) 31 U/L (15-37); Alanine Aminotransfer ALT/SGPT 34 U/L (13-56); Albumin, Serum 3.9 g/dL (3.2-5.0); Alkaline Phosphatase 58 U/L (45-117); Bilirubin, Direct 0.08 mg/dL (0.00-0.30); Cholesterol 183 mg/dL (200); Globulin 3.5 g/dL (2.2-4.2); High Density Lipoprotein 70 mg/dL; Protein, Total 7.4 g/dL (6.4-8.2); Triglycerides 92 mg/dL; Very Low Density Lipoprotein 18 mg/dL (5-40)
[2022-11-14 04:07] LABS: Cancer Antigen 125 9.3 U/mL (0.0-38.1)
== END | disposition home or self-care (01) ==
LOC: LAB 07:28
PROVIDERS: Internal Medicine Cardiovascular Disease; PCP Family Medicine
DX: C54.1 Malignant neoplasm of endometrium (principal); E78.5 Hyperlipidemia, unspecified
CPT/HCPCS: 36415; 80061; 80076; 86304

== ENCOUNTER → 2023-03-29 | Outpatient (CLI) | payer MEDICARE, OTHER, SELFPAY ==
[2023-03-29 16:03] LABS: Bacteria 0 SEEN /hpf (None Seen); Mucous, Urine 0 SEEN /hpf (<or=2+); Red Blood Cells-Urine 0 SEEN /hpf (0-5); White Blood Cells 0 SEEN /hpf (0-5)
[2023-03-29 16:59] LABS: Color, Urine Yellow (Yellow); Glucose, Dipstick Normal (Normal); Ketone-Dipstick Negative (Negative); Leukocyte Esterase-Dipstick Negative /ul (Negative); Nitrite-Dipstick Negative (Negative); Occult Blood-Urine Negative /ul (Negative); Protein-Dipstick Negative (Negative); Specific Gravity, Urine 1.015 (1.002-1.030); Urine Bilirubin Dipstick Negative (Negative); Urine Clarity Clear (Clear); Urine Urobilinogen Normal (Normal)
[2023-03-29 17:28] LABS: Squamous Epithelial Cells - UA 0-5 SEEN /hpf (5-10)
== END | disposition home or self-care (01) ==
PROVIDERS: PCP Family Medicine; Referring Provider Family Medicine; Visit Provider Family Medicine
DX: N39.0 Urinary tract infection, site not specified (principal)
CPT/HCPCS: 81001; 87086

== ENCOUNTER 2023-03-31 13:00 | Outpatient (RCR) | payer MEDICARE, OTHER, SELFPAY ==
--- NOTE | 2023-02-03 16:15 | HP.PTEVAL ---
Patient's Visit Information Visit Information Visit Information: HIWOT PALMER is a 77 year old F referred to Physical Therapy by JUAN BURKETT with a diagnosis of Right THR 01/27/23. Date of Evaluation: 02/03/23 Physical Therapist: Avani Tony DPT Visit Plan Frequency: 2x /Week Duration: 4 Weeks Plan: Posterior Approach Right THR Dr Olson 01/27/23 HEP Given IE: HR/TR, weight shifts, hip add and hip abd with GTB Subjective Subjective: Right THR posterior by Dr Olson 01/27/23- she stayed over night- then she went home- no home therapy and she is here today. She did some exercises over the weekend. Lives in a 2 story home with a few steps to enter- bedroom on the second floor- she is using her cane to get up the steps. Sleeping in her bed- but in a recliner during the day. Worst in the last 24 hours: 7/10 Agg: movement Eases: medication Best: 0/10. Pain is located in the lateral hip in the incision site and radiates down the thigh to the knee. Has had some numbess and tingling in her feet- it goes away when she moves. Prior to surgery she was doing her own dressing, driving and bathing. She is very active normally. Work: does not work- she likes to work and play pickle ball. Sleep: not too bad at this time due to taking the medication. No AD prior to surgery. PMHx/Meds: Oxycodone, Tylenol, Meloxicam - no other medication changes since Dr. Norris visit. Objective Objective: Posture: FH, RS- can correct with verbal cues Gait: step to gait pattern with FWW Observation: allowed to take bandage off tomorrow HR/TR: able with UE A of walker SLS: weight shift only and reports discomfort ROM: WFL in all planes following precautions Strength: Core: fair, Hip: SLR able without A- Flexion: 15 Extn: 10 Abd: 4/5, Add: 4+/5, Knee: Extn: 4/5 Flex: 4/5, Ankle: 5/5 Palpation: tender to touch throughout thigh and into the gluts Balance/Special Test Scores Lower Extremity Functional Score: 8 WOMAC Total Score: 72 WOMAC Percentatge: 25.0000 Goals Goal 1:: Patient will be I with HEP Goal Time Frame: 4-6 Weeks Goal 2:: Patient will ambulate >300 feet with a normalized gait pattern and LRD Goal Time Frame: 4-6 Weeks Goal 3:: Patient will asc/desc 8 stairs recip with 1 HR Goal Time Frame: 4-6 Weeks Goal 4:: Patient will SLS for 15 sec with LOB Goal Time Frame: 4-6 Weeks Goal 5:: Patient will report 80% improvement Goal Time Frame: 4-6 Weeks Rehabilitation Potential Physical Therapy Diagnosis: Patient presents with hypomobility- she had a posterior THR 01/27/23- she has decreased LE and core strength/stabilization, flex, proprioception and muscular endurance leading to abnormal gait pattern and decreased ability to perform ADL's. Rehabilitation Potential: Good Anticipated Interventions Patient/Client Instruction: Educate patient on: Benefits of Fitness Program Therapeutic Exercise to Include: Strength training, Endurance training, Balance training, Coordination, Agility training, Body mechanics, Postural training, Flexibilty training, Gait and locomotor training, Neuromotor development, Relaxation training, Passive ROM, Active ROM, Dynamic Lumbar Stabilization and Scapular Strength/Stabilization For the Purpose of:: To improve muscle performance and motor function Functional Training to Include: Gait training TENS: Yes Cryotherapy (ice pack, ice massage): Yes Thermo therapy (hot pack): Yes Text: Thank you for the opportunity to evaluate your patient. For Medicare and Medicare HMO plans, please review the plan of care and approve it. It will need to be FAXED BACK to us at [phone] for Medicare purposes. For Medicare only, by signing this I certify the plan of care. Please let me know if there are questions or concerns regarding this plan of care. Physician Signature: Date:
--- NOTE | 2023-03-10 13:04 | HP.PTREVAL ---
Re-Evaluation Intro: JUAN BURKETT, It has been my pleasure to treat HIWOT PALMER over the last 7 visits for Right THR 01/27/23. Please see the progress note below for an update on the physical therapy plan of care! Subjective Subjective: Patient reports that she feels that she is doing great- she feels that as the exercises have gotten tougher she feels them- muscle soreness- She has some tenderness along the incision. She feels that she is 60-75% with her ADL's. She has just started driving- has her MD apt next week. Her is still doing her laundry. Pain at its worst 4/10 in the last couple of days- able to manage with over the counter. Sleep is good. Objective Objective/Function: Posture: good throughout Gait: no deviation noted HR/TR: able SLS: 5 seconds then LOB ROM: WFL in all planes following precautions Strength: Core: fair, Hip: Flexion: 20.7 Extn: 33 Abd: 4+/5, Add: 4+/5, Knee: Extn: 4+/5 Flex: 4+/5, Ankle: 5/5 Palpation: tender to touch throughout thigh and into the gluts Stairs: asc/desc 8 recip with 1 HR Plan Plan Plan: 03/10/23: Continue 2x a week for HEP with machines and balance- focus on higher level exercises and functional tasks (carrying things up/down stairs, getting up off the floor, etc) Posterior Approach Right THR Dr Olson 01/27/23 HEP Given IE: HR/TR, weight shifts, hip add and hip abd with GTB Balance/Gait/Functional tests Balance/Special Test Scores Lower Extremity Functional Score: 8 Tug Test: <10 sec.=free mobile WOMAC Total Score: 30 WOMAC Percentage: 68.7500 Goals Goals Goal 1:: Patient will be I with HEP Goal Time Frame: 4-6 Weeks Goal Progress: Progressing Goal 2:: Patient will ambulate >300 feet with a normalized gait pattern and LRD Goal Time Frame: 4-6 Weeks Goal Progress: Progressing Goal 3:: Patient will asc/desc 8 stairs recip with 1 HR Goal Time Frame: 4-6 Weeks Goal Progress: Progressing Goal 4:: Patient will SLS for 15 sec with LOB Goal Time Frame: 4-6 Weeks Goal Progress: Progressing Goal 5:: Patient will report 80% improvement Goal Time Frame: 4-6 Weeks Anticipated Interventions Anticipated Interventions Patient/Client Instruction: Educate patient on: Benefits of Fitness Program Therapeutic Exercise to Include: Strength training, Endurance training, Balance training, Coordination, Agility training, Body mechanics, Postural training, Flexibilty training, Gait and locomotor training, Neuromotor development, Relaxation training, Passive ROM, Active ROM, Dynamic Lumbar Stabilization and Scapular Strength/Stabilization For the Purpose of:: To improve muscle performance and motor function Functional Training to Include: Gait training TENS: Yes Cryotherapy (ice pack, ice massage): Yes Thermo therapy (hot pack): Yes Re-Evaluation Ending Re-evaluation ending: Please do not hesitate to contact me at [phone] by phone or if you have questions or concerns regarding this new plan of care! Sincerely, Avani Tony DPT
--- NOTE | 2023-03-31 14:18 | HP.PT.NRP ---
Patient Information Patient Information: HIWOT PALMER was seen in my office for initial evaluation on 02/03/23. The following Plan of Care was established for this patient: POC Established Initial Frequency: 2x /Week Initial Duration: 4 Weeks Anticipated Interventions Patient/Client Instruction: Educate patient on: Benefits of Fitness Program Therapeutic Exercise to Include: Strength training, Endurance training, Balance training, Coordination, Agility training, Body mechanics, Postural training, Flexibilty training, Gait and locomotor training, Neuromotor development, Relaxation training, Passive ROM, Active ROM, Dynamic Lumbar Stabilization and Scapular Strength/Stabilization For the Purpose of:: To improve muscle performance and motor function Functional Training to Include: Gait training TENS: Yes Cryotherapy (ice pack, ice massage): Yes Thermo therapy (hot pack): Yes Last Seen Last Seen: This patient was last seen in our office . Pertinent comments regarding their Physical therapy will appear below: Patient is moving- she has made excellent progress in therapy and is appropriate to continue her home exercise program with health and wellness. At this point I will be discontinuing this patient from physical therapy. I would be happy to see this patient again in the future if found appropriate by the physician. Thank you! Avani Tony DPT Balance/Gait/Functional tests Balance/Special Test Scores Lower Extremity Functional Score: 61 Tug Test: <10 sec.=free mobile WOMAC Total Score: 30 WOMAC Percentage: 68.7500
== END 2023-03-31 19:00 | disposition home or self-care (01) ==
LOC: PT 13:00
PROVIDERS: PCP Family Medicine
DX: M16.11 Unilateral primary osteoarthritis, right hip (principal)
CPT/HCPCS: 97110; 97162; 97164

== ENCOUNTER → 2023-04-12 | Outpatient (CLI) | payer MEDICARE, OTHER, SELFPAY ==
--- NOTE | 2023-04-12 | CYST_PTH ---
PATIENT: HIWOT PALMER LOC: [facility]#:[id number] AGE/SX: 78/F ROOM: RE04/12/[address]: Dr. Som Meredith MD : 1945 BED: DIS: 04/12/2023 SPEC #: [id number] RECD: 04/12/23 12:16 STATUS: MARTÍN DENIS #: [id number] MADHAV: 04/12/23 00:[address]: Som Meredith DEPT: SURGICAL PATHOLOGY RECD BY: Reena Moser ENTERED: 04/12/23 12:52 SP TYPE: Cyst OTHR DR: Dr. Kevin Lei MD Tissues: CYST Procedures: Surgery Specimen Level III HEADER OPERATION: Incision and drainage, excision infected sebaceous cyst right axilla PRE-OP DIAGNOSIS: Infected sebaceous cyst right axilla region TISSUE SUBMITTED: Debrided tissue right axilla abscess MICROSCOPIC DIAGNOSIS Right axilla, biopsy: Skin and soft tissue with ulceration and associated acute and chronic inflammation and granulation. AM:rosa 04/13/2023 MICROSCOPIC DESCRIPTION Slides are reviewed. GROSS DESCRIPTION Received in fixative is one container labeled with the patient's name and designated debrided tissue right axilla abscess. The specimen consists of three variable sized pieces of soft tissue measuring in aggregate 1.5 x 0.5 x 0.3 cm. The entire specimen is submitted in one cassette. / KATYA:rosa 04/12/2023 TC:2 CPT: 31326
== END | disposition home or self-care (01) ==
LOC: LABSPEC 12:25
PROVIDERS: PCP Family Medicine; Referring Provider Surgery; Visit Provider Surgery
DX: L72.3 Sebaceous cyst (principal); L08.9 Local infection of the skin and subcutaneous tissue, unspecified
CPT/HCPCS: 87070; 87075; 87077; 87205; 88304

== ENCOUNTER → 2023-05-05 | Outpatient (CLI) | payer MEDICARE, OTHER, SELFPAY ==
[2023-05-05 09:50] LABS: AST(SGOT) 28 U/L (15-37); Alanine Aminotransfer ALT/SGPT 29 U/L (13-56); Albumin, Serum 3.8 g/dL (3.2-5.0); Alkaline Phosphatase 73 U/L (45-117); Cholesterol 195 mg/dL (200); Globulin 3.8 g/dL (2.2-4.2); High Density Lipoprotein 73 mg/dL; Protein, Total 7.6 g/dL (6.4-8.2); Triglycerides 84 mg/dL; Very Low Density Lipoprotein 17 mg/dL (5-40)
[2023-05-06 04:07] LABS: Cancer Antigen 125 8.8 U/mL (0.0-38.1)
== END | disposition home or self-care (01) ==
LOC: LAB 08:50
PROVIDERS: PCP Family Medicine; Referring Provider Internal Medicine Cardiovascular Disease; Visit Provider Internal Medicine Cardiovascular Disease
DX: C54.1 Malignant neoplasm of endometrium (principal); E78.00 Pure hypercholesterolemia, unspecified
CPT/HCPCS: 36415; 80061; 80076; 86304

== ENCOUNTER → 2023-06-09 | Outpatient (CLI) | payer MEDICARE, OTHER, SELFPAY | END | disposition home or self-care (01) | PROVIDERS: PCP Family Medicine; Referring Provider Internal Medicine Cardiovascular Disease; Visit Provider Internal Medicine Cardiovascular Disease | DX: Z79.899 Other long term (current) drug therapy (principal) | CPT/HCPCS: 93306 ==

== ENCOUNTER → 2023-11-03 | Outpatient (CLI) | payer MEDICARE, OTHER, SELFPAY ==
[2023-11-03 09:55] LABS: ALB/GLOB Ratio 1.3 RATIO (0.9-2.4); AST(SGOT) 25 U/L (15-37); Alanine Aminotransfer ALT/SGPT 19 U/L (13-56); Albumin, Serum 4.3 g/dL (3.2-5.0); Alkaline Phosphatase 66 U/L (45-117); Anion Gap 5 (5-15); BUN 14 mg/dL (7-18); BUN/Creat Ratio 16.1 RATIO (10-20); Calcium,Total 9.3 mg/dL (8.5-10.1); Chloride 103 mmol/L (98-107); Creatinine, Serum 0.87 mg/dL (0.55-1.02); EST Glomerular Filtration Rate 67 mL/min (>60); Est Glom Filt Rate - Afr Amer 81 mL/min (>60); Globulin 3.3 g/dL (2.2-4.2); Glucose 96 mg/dL (74-106); Potassium 3.7 mmol/L (3.5-5.1); Protein, Total 7.6 g/dL (6.4-8.2); Sodium Level 137 mmol/L (136-145)
[2023-11-03 10:22] LABS: Microalbumin,Random Urine 6.7 mg/L (NO RANGE EST.); Microalbumin:Creatinine Ratio 29.8 mg/g CRE (<30 mg/g CRE)
[2023-11-03 11:37] LABS: AST(SGOT) 25 U/L (15-37); Alanine Aminotransfer ALT/SGPT 18 U/L (13-56); Albumin, Serum 4.2 g/dL (3.2-5.0); Alkaline Phosphatase 64 U/L (45-117); Bilirubin, Direct 0.13 mg/dL (0.00-0.30); Cholesterol 263 mg/dL (200); Globulin 3.6 g/dL (2.2-4.2); High Density Lipoprotein 68 mg/dL; Protein, Total 7.8 g/dL (6.4-8.2); Triglycerides 115 mg/dL; Very Low Density Lipoprotein 23 mg/dL (5-40)
[2023-11-04 04:07] LABS: Cancer Antigen 125 9.6 U/mL (0.0-38.1)
== END | disposition home or self-care (01) ==
LOC: LAB 08:28
PROVIDERS: Internal Medicine Cardiovascular Disease; PCP Family Medicine; Referring Provider Family Medicine; Visit Provider Family Medicine
DX: E78.00 Pure hypercholesterolemia, unspecified (principal); I10 Essential (primary) hypertension; Z90.710 Acquired absence of both cervix and uterus
CPT/HCPCS: 36415; 80053; 80061; 80076; 82043; 82570; 86304

== ENCOUNTER 2023-11-09 06:25 | Day surgery (SDC) | payer MEDICARE, OTHER, SELFPAY ==
[2023-11-09 06:50] VITALS: BP 133/77; PULSE 69; RESP 17; TEMP 37.3; O2SAT 99; BMI 22.6
[2023-11-09] MEDS: Lactated Ringers 1,000 ML 15 ML IV (06:50)
--- NOTE | 2023-11-09 07:00 | HP.PCM_ITS ---
History and Physical Date of Admission: 11/09/23 Visit Reasons: Hemorrhoids Chief Complaint: hemorrhoids Cryptologic Supervisor Required: No Is patient in pain?: No Allergies No Known Allergies Allergy (Verified 10/29/23 14:01) Medications naproxen sodium 220 mg tablet 220 mg PO PRN PRN Pain 02/17/15 [History Confirmed 10/29/23] mecobalamin (vitamin B12) 1,000 mcg disintegrating tablet,sublingual 1,000 mcg sublingual MOWEFR SUPPLEMENT 12/11/17 [History Confirmed 10/29/23] acetaminophen 500 mg tablet (Tylenol Extra Strength) 1,000 mg PO Q6H PRN 10/14/22 [History Confirmed 10/29/23] amlodipine 10 mg tablet 10 mg PO QHS BP #90 tabs 05/12/23 [Rx Confirmed 10/29/23] magnesium 200 mg tablet 400 mg (2 x 200 mg) PO DAILY #60 tabs 06/01/23 [Rx Confirmed 10/29/23] diazepam 5 mg tablet (Valium) 5 mg PO QHS PRN insomnia #30 tabs 08/31/23 [Rx Confirmed 10/29/23] paroxetine HCl 20 mg tablet (Paxil) 20 mg PO DAILY #90 tabs 08/31/23 [Rx Confirmed 10/29/23] zolpidem 5 mg tablet 2.5 mg PO QHS SLEEP 10/29/23 [History] PFSH Medical History Abscess of right axilla BRCA2 gene mutation positive Breast cancer Depression Essential (primary) hypertension ERIK (generalized anxiety disorder) History of chemotherapy Hyperlipidemia MDD (major depressive disorder) PAC (premature atrial contraction) Postmenopausal bleeding Uterine cancer Surgical History H/O bilateral mastectomy H/O bilateral oophorectomy History of dilatation and curettage (03/2018) History of hip replacement History of hysterectomy (04/2018) History of incision and drainage History of tonsillectomy Family History Mother HypertensionFather CAD (coronary artery disease)Mother Cancer ovarianGrandmother Breast cancerOther Hyperlipidemia Social History Smoking Status: Never smoker alcohol intake: current details: social substance use type: does not use caffeine: Yes what type of physical activity do you participate in: walking frequency: 3-4 times per week do you feel safe at home: Yes additional social history: Jayesh- Both are retired HPI HPI HPI: 78-year-old female was referred by Dr. Kevin Lei for surgical consultation regarding hemorrhoids and a written copy my surgical consult and recommendations will return to him. Patient is concerned about both internal and external hemorrhoids with some liquid incontinence. I have assisted her most recently with debridement of the right axillary abscess. She uses Naprosyn as needed as needed. She is not on any anticoagulants. The patient's been having intermittent rectal bleeding. She has incontinence of the light brown material. She has some nondescript abdominal pain. Still tolerating a diet. Her past history is notable that she is BRCA positive. She had breast cancer with bilateral mastectomies. She has had a hysterectomy with oophorectomy. Her previous colonoscopy dates back to 2014. She has known internal hemorrhoids commented upon back at that exam. She by verbal report was also noted to have a difficult colonoscopy. ROS General General: Yes fatigue and breast cancer; No weight change, appetite, colon cancer or weakness HEENT HEENT: Yes eye injury and eye surgery; No difficulty swallowing, swollen glands or hoarseness Endo Endocrine: No thyroid disease, diabetes mellitus, thyroid cancer, Hair loss, heat intolerance or cold intolerance Skin Skin: No rash or changing moles Breast Breast: No left breast lump, right breast lump, nipple discharge, breast pain, abnormal mammogram, abnormal US or breast enlargement Musc Musculoskeletal: Yes back problems and arthritis; No rheumatoid arthritis, gout or joint pain Cardio Cardiovascular: Yes high blood pressure; No murmur, pacemaker, heart disease, atrial fibrillation, heart attack, heart stent, palpitations, shortness of breat with exertion or chest pain Psych Psychiatric: Yes depression and anxiety; No hearing voices Resp Respiratory: No shortness of breath, No sleep apnea, No cough, No COPD, No asthma, No emphysema and No wheezing Gastro Gastrointestinal: No abdominal pain, No nausea or vomiting, No diarrhea, Yes constipation, No blood in stool, No acid reflux, Yes hemorrhoids, No ulcers, No gallbladder problem and No black,tarry stools Red Hematologic: No blood thinners, No blood disorders, No bleeding, No anemia and No blood clots Neuro Neurologic: No system reviewed and no additional complaints, except as documented, No as per HPI, No abnormal gait, No abnormal hearing, No abnormal movements, No abnormal speech, No behavioral changes, No burning sensations, No confusion, No convulsions, No disequilibrium, No dizziness, No localized weakness, No frequent falls, No headache(s), No lack of coordination, No loss of vision, No memory loss, Yes numbness, No other visual disturbances, No radicular pain, No restless legs, No sensory deficit, No syncope, Yes tingling, No tremor(s), No weakness and No other Exam Const General: cooperative, healthy appearing, comfortable and no acute distress Nutritional Appearance: average body habitus Orientation: alert and awake HENHI Head: normal to inspection Eyes General: appearance normal, both eyes and all related structures Neck Neck: normal visual inspection Chest Chest palpation & inspection: normal inspection of the chest Resp Effort & Inspection: normal respiratory effort Auscultation: clear to auscultation bilaterally Cardio Rate: regular rate Rhythm: regular rhythm GI Inspection: normal to inspection Other: Soft, nontender External expection of the anus demonstrates some external hemorrhoidal tags. Digital exam demonstrates exuberant internal hemorrhoids. No active bleeding. No focal mass on digital exam Musc Cervical Spine: normal cervical lordosis Skin General: no rashes or lesions noted Neuro General: patient alert, patient awake and patient oriented x3 Extrem General: no calf tenderness Psych Appearance: grossly normal Assessment and Plan Assessment and Plan (1) Hemorrhoids: Qualifiers: Hemorrhoid type: second degree Qualified Code(s): K64.1 - Second degree hemorrhoids Plan: Based upon the patient's presentation I do suspect likely complications from the internal hemorrhoids however based upon her BRCA2 positivity and history of breast cancer and history of uterine cancer she clearly is at increased risk. Previously colonoscopy dating back to 2015. I do strongly propose for a colonoscopy with possible biopsy or polypectomy as indicated. We will try to schedule and expedite that for her. I do anticipate that she likely will have a more difficult examination and I have discussed that with her. Pending her findings then regarding her internal hemorrhoids because of their exuberance I do not feel that banding will be a useful option. We could consider a PPH stapled hemorrhoidopexy although that to would not be as definitive as a traditional hemorrhoidectomy. I did try to reassure her that we have newer anesthetic agents like Exparel which is lipid bound which does offer prolonged comfort. In any case at this point she is not interested in proceeding with a hemorrhoidectomy but she is interested in pursuing a definitive diagnosis. Copy: Dr. Kevin Meredith M.D., F.A.C.S. I have examined the patient and the H&P has been reviewed. There are no clinical changes since date of exam. Som Meredith M.D., F.A.C.S.
[2023-11-09] MEDS: Ampicillin 2 GM in 0.9% Normal Saline (100mL MB+) 100 ML IV (07:37)
--- NOTE | 2023-11-09 08:10 | OP.CCLET_ITS ---
11/09/2023 Kevin Lei [address] [place] [address] Re : Colonoscopy procedure for Aida Tejadank Dear Dr. Lei This procedure was performed on Thursday, November 09, 2023. My impressions and recommendations are as follows: Impressions : - Non-thrombosed external hemorrhoids, non-thrombosed internal hemorrhoids and internal hemorrhoids that prolapse with straining, but require manual replacement into the anal canal (Grade III) found on digital rectal exam. - Diverticulosis in the sigmoid colon. - Tortuous colon. - No specimens collected. Recommendations : - Discharge patient to home. - Resume previous diet. - Continue present medications. - Repeat colonoscopy in 5 years for surveillance. - Return to my office in 1 week to discuss hemorrhoid procedures at her discretion Rectal bleeding is felt to be secondary to mostly internal with combination external hemorrhoids. My findings are described in the full procedure note, which is enclosed. If I can be of further assistance, please feel free to contact me at Doctor phone number(s): Work: . Sincerely, Som Meredith MD 11/09/2023 8:09:29 AM This report has been signed electronically.
--- NOTE | 2023-11-09 08:10 | OP.COLON_ITS ---
Patient Name: Aida Alonso Procedure Date: 11/09/2023 7:31 AM Date of : 1945 Age: 78 Procedure: Colonoscopy Indications: Rectal bleeding Providers: Som Meredith MD Medicines: See the Anesthesia note for documentation of the administered medications Patient Profile: Last Colonoscopy: 2014. Complications: No immediate complications. Procedure: Pre-Anesthesia Assessment: - Prior to the procedure, a History and Physical was performed, and patient medications and allergies were reviewed. The patient's tolerance of previous anesthesia was also reviewed. The risks and benefits of the procedure and the sedation options and risks were discussed with the patient. All questions were answered, and informed consent was obtained. Prior Anticoagulants: The patient has taken no anticoagulant or antiplatelet agents. ASA Grade Assessment: II - A patient with mild systemic disease. After reviewing the risks and benefits, the patient was deemed in satisfactory condition to undergo the procedure. After I obtained informed consent, the scope was passed under direct vision. Throughout the procedure, the patient's blood pressure, pulse, and oxygen saturations were monitored continuously. The colonoscope was introduced through the anus and advanced to the cecum, identified by appendiceal orifice and ileocecal valve. The colonoscopy was technically difficult and complex due to a tortuous colon. The patient tolerated the procedure well. The quality of the bowel preparation was good. The ileocecal valve and the appendiceal orifice were photographed. Scope In: 7:41:19 AM Scope Withdrawal Time 0 hours 8 minutes 40 seconds Scope Out: 8:02:31 AM Total Procedure Duration Time 0 hours 21 minutes 12 seconds Findings: The digital rectal exam findings include non-thrombosed external hemorrhoids, non-thrombosed internal hemorrhoids and internal hemorrhoids that prolapse with straining, but require manual replacement into the anal canal (Grade III). A few diverticula were found in the sigmoid colon. The left colon was significantly tortuous. Advancing the scope required changing the patient to a supine position and using manual pressure. Impression: - Non-thrombosed external hemorrhoids, non-thrombosed internal hemorrhoids and internal hemorrhoids that prolapse with straining, but require manual replacement into the anal canal (Grade III) found on digital rectal exam. - Diverticulosis in the sigmoid colon. - Tortuous colon. - No specimens collected. Recommendation: - Discharge patient to home. - Resume previous diet. - Continue present medications. - Repeat colonoscopy in 5 years for surveillance. - Return to my office in 1 week to discuss hemorrhoid procedures at her discretion Rectal bleeding is felt to be secondary to mostly internal with combination external hemorrhoids. Procedure Code(s): --- Professional --- 72095, Colonoscopy, flexible; diagnostic, including collection of specimen(s) by brushing or washing, when performed (separate procedure) Diagnosis Code(s): --- Professional --- K64.2, Third degree hemorrhoids K64.4, Residual hemorrhoidal skin tags K62.5, Hemorrhage of anus and rectum K57.30, Diverticulosis of large intestine without perforation or abscess without bleeding Q43.8, Other specified congenital malformations of intestine CPT copyright 2021 [employer]. All rights reserved. The codes documented in this report are preliminary and upon welder tool and die review may be revised to meet current compliance requirements. Som Meredith MD 11/09/2023 8:09:29 AM This report has been signed electronically. Number of Addenda: 0 Note Initiated On: 11/09/2023 7:31 AM
[2023-11-09 08:11] VITALS: BP 133/77; BP 145/111; PULSE 72; RESP 16; TEMP 36.2; O2SAT 94
[2023-11-09 08:15] VITALS: BP 133/77; BP 95/50; PULSE 71; RESP 16; O2SAT 97
[2023-11-09 08:20] VITALS: BP 101/67; BP 133/77; PULSE 66; RESP 16; O2SAT 98
[2023-11-09 08:24] VITALS: BP 107/60; BP 133/77; PULSE 60; RESP 16; TEMP 36.4; O2SAT 97
[2023-11-09] MEDS: DiphenhydrAMINE 25 MG Capsule PO (08:51)
[2023-11-09 08:52] VITALS: BP 133/77
== END 2023-11-09 09:00 | disposition home or self-care (01) ==
LOC: EN 06:26 → AC 06:27
PROVIDERS: PCP Family Medicine; Referring Provider Family Medicine; Visit Provider Surgery
PROC: 0DJD8ZZ Inspection of Lower Intestinal Tract, Via Natural or Artificial Opening Endoscopic (ICD-10-PCS; CPT 45378; principal; 2023-11-09 07:25)
DX: K64.1 Second degree hemorrhoids (principal); F41.1 Generalized anxiety disorder; K57.30 Diverticulosis of large intestine without perforation or abscess without bleeding; E78.5 Hyperlipidemia, unspecified; I10 Essential (primary) hypertension; K64.4 Residual hemorrhoidal skin tags; K62.5 Hemorrhage of anus and rectum; Z90.722 Acquired absence of ovaries, bilateral; K64.2 Third degree hemorrhoids; Z85.3 Personal history of malignant neoplasm of breast
CPT/HCPCS: 45378; J7120; J2405

== ENCOUNTER → 2024-04-28 | Outpatient (CLI) | payer MEDICARE, OTHER, SELFPAY ==
[2024-04-28 08:32] LABS: ALB/GLOB Ratio 1.2 RATIO (0.9-2.4); AST(SGOT) 28 U/L (15-37); Alanine Aminotransfer ALT/SGPT 41 U/L (13-56); Albumin, Serum 4.2 g/dL (3.2-5.0); Alkaline Phosphatase 72 U/L (45-117); Anion Gap 4 (5-15); BUN 14 mg/dL (7-18); BUN/Creat Ratio 16.5 RATIO (10-20); Calcium,Total 8.6 mg/dL (8.5-10.1); Chloride 103 mmol/L (98-107); Cholesterol 288 mg/dL (200); Creatinine, Serum 0.85 mg/dL (0.55-1.02); EST Glomerular Filtration Rate 69 mL/min (>60); Est Glom Filt Rate - Afr Amer 84 mL/min (>60); Globulin 3.5 g/dL (2.2-4.2); Glucose 107 mg/dL (74-106); High Density Lipoprotein 72 mg/dL; Potassium 3.9 mmol/L (3.5-5.1); Protein, Total 7.7 g/dL (6.4-8.2); Sodium Level 136 mmol/L (136-145); Triglycerides 112 mg/dL; Very Low Density Lipoprotein 22 mg/dL (5-40)
[2024-04-28 08:34] LABS: AST(SGOT) 29 U/L (15-37); Alanine Aminotransfer ALT/SGPT 41 U/L (13-56); Albumin, Serum 4.1 g/dL (3.2-5.0); Alkaline Phosphatase 74 U/L (45-117); Bilirubin, Direct 0.13 mg/dL (0.00-0.30); Globulin 3.6 g/dL (2.2-4.2); Protein, Total 7.7 g/dL (6.4-8.2)
[2024-04-29 04:07] LABS: Cancer Antigen 125 11.6 U/mL (0.0-38.1)
== END | disposition home or self-care (01) ==
LOC: LAB 07:34
PROVIDERS: Physician Assistant Medical; PCP Family Medicine; Referring Provider Obstetrics & Gynecology Gynecologic Oncology; Visit Provider Obstetrics & Gynecology Gynecologic Oncology
DX: C54.1 Malignant neoplasm of endometrium (principal); I10 Essential (primary) hypertension; E78.5 Hyperlipidemia, unspecified
CPT/HCPCS: 36415; 80053; 80061; 80076; 86304

== ENCOUNTER → 2024-05-03 | Outpatient (CLI) | payer MEDICARE, OTHER, SELFPAY ==
[2024-05-03 10:28] LABS: Absolute Lymphocyte Count 1.36 X10^3/uL (0.83-4.51); Absolute Neutrophil Count 2.1 X10^3/uL (2.0-7.7); Basophil# 0.05 X10^3/uL; Basophil% 1.2 % (0-1); Eosinophil# 0.19 X10^3/uL; Eosinophils% 4.5 % (0-5); Hematocrit 42.6 % (37-47); Hemoglobin 13.8 g/dL (12.0-15.0); Lymphocyte # 1.36 X10^3/ul (0.83-4.51); Lymphocyte % 31.9 % (19-41); Mean Corp Hgb Conc 32.4 g/dL (32-36); Mean Corpuscular Hgb 31.4 pg (27.0-32.0); Mean Corpuscular Volume 96.8 fL (81-99); Mean Platelet Vol. 10.1 fl (6.2-12.0); Monocyte# 0.55 X10^3/uL; Monocyte% 12.9 % (0-10); NRBC Flagged by Analyzer 0 % (0-5); Neutrophil % 49.3 % (47-70); Platelet Count 220 K/mm3 (150-450); RBC Distribution Width SD 43.3 fl (35.1-43.9); White Blood Count 4.3 K/mm3 (4.4-11.0)
== END | disposition home or self-care (01) ==
LOC: LAB 09:40
PROVIDERS: PCP Family Medicine; Referring Provider Family Medicine; Visit Provider Family Medicine
DX: R53.83 Other fatigue (principal); K62.5 Hemorrhage of anus and rectum
CPT/HCPCS: 36415; 84443; 85025

== ENCOUNTER → 2024-05-10 | Outpatient (CLI) | payer MEDICARE, OTHER, SELFPAY ==
--- NOTE | 2024-05-10 07:52 | CT_ITS ---
STUDY: CT CHEST WITHOUT CONTRAST REASON FOR EXAM: Female, 79 years old. hyperlipemia RADIATION DOSAGE (If Supplied By Facility): CTDIvol = ( 12.19 ) mGy, DLP = ( 195.04 ) mGycm TECHNIQUE: Transaxial imaging was performed without the administration of intravenous contrast material. Cardiac over read examination. Individualized dose optimization techniques were used for this CT. COMPARISON: No relevant priors. FINDINGS: CHEST Bilateral breast implants. Mild linear scarring at the lung bases slightly more prominent on the right side. There is no demonstrated pleural abnormality. There are calcifications of the coronary arteries. Normal mediastinum. Normal hilar regions. Normal unenhanced pulmonary arteries. Normal aorta arch and descending thoracic aorta. There are multi-level degenerative changes of the thoracic spine. There is no demonstrated abnormality of the visualized upper abdomen. CT/Limited Chest CT Cardiac Only IMPRESSION: Coronary artery calcification. Electronically Signed: Otoniel Salazar MD at 13:23 EST ,
--- NOTE | 2024-05-10 16:22 | CA.SCORE ---
Calcium Scoring Date of Study:: 05/10/24 Indications Indications: Hyperlipidemia Coronary Calcium Scoring: High-resolution Computed Tomographic imaging of the chest was performed on [05/10/2024], with particular attention paid to the coronary arteries. Images from the examination were analyzed for the presence and extent of coronary artery calcification , using coronary calcium quantification software. The patient tolerated the procedure well and there were no complications. The results of the coronary calcification analysis are provided below. Findings Coronary Artery Left Main (LM): 0 Left Anterior Descending (LAD): 300 Left Circumflex (LCX): 37.5 Right Coronary Artery (RCA): 20 Total Agatston Score: 357.5 Percentile Rankinth and 90th percentile Calcium Scoring Interpretation: Different methods to categorize the overall amount of coronary plaque. Overall amount CAC SIS Visual of coronary plaque P1 Mild -100 <2 1-2 vessels with mild amount of plaque P2 Moderate 101-300 3-4 1-2 vessels with moderate amount, 3 vessels with mild amount of plaque P3 Severe 301-999 5-7 3 vessels with moderate amount, 1 vessel with severe amount of plaque P4 Extensive >1000 >8 2-3 vessels with severe amount of plaque Calcium Score: Severe: 3 vessels w/moderate amount, 1 vessel w/severe amt of plaque Conclusion: Moderate amount of plaque noted in the left anterior descending artery with mild plaque noted in the circumflex and right coronary arteries.
== END | disposition home or self-care (01) ==
PROVIDERS: PCP Family Medicine; Referring Provider Internal Medicine Cardiovascular Disease; Visit Provider Internal Medicine Cardiovascular Disease
DX: E78.5 Hyperlipidemia, unspecified (principal)
CPT/HCPCS: 75571; 76380

== ENCOUNTER → 2024-10-14 | Outpatient (CLI) | payer MEDICARE, OTHER, SELFPAY ==
[2024-10-14 09:09] LABS: Absolute Lymphocyte Count 1.28 X10^3/uL (0.83-4.51); Absolute Neutrophil Count 1.5 X10^3/uL (2.0-7.7); Basophil# 0.05 X10^3/uL; Basophil% 1.5 % (0-1); Eosinophil# 0.15 X10^3/uL; Eosinophils% 4.4 % (0-5); Hematocrit 39.5 % (37-47); Hemoglobin 13.4 g/dL (12.0-15.0); Lymphocyte # 1.28 X10^3/ul (0.83-4.51); Lymphocyte % 37.3 % (19-41); Mean Corp Hgb Conc 33.9 g/dL (32-36); Mean Corpuscular Hgb 33.1 pg (27.0-32.0); Mean Corpuscular Volume 97.5 fL (81-99); Mean Platelet Vol. 9.6 fl (6.2-12.0); Monocyte# 0.49 X10^3/uL; Monocyte% 14.3 % (0-10); NRBC Flagged by Analyzer 0 % (0-5); Neutrophil # 1.46 X10^3/uL (2.7-7.7); Neutrophil % 42.5 % (47-70); Platelet Count 194 K/mm3 (150-450); RBC Distribution Width CV 11.8 % (11.6-14.6); RBC Distribution Width SD 42.6 fl (35.1-43.9); Red Blood Count 4.05 M/mm3 (4.2-5.4); White Blood Count 3.4 K/mm3 (4.4-11.0)
[2024-10-14 09:54] LABS: Microalbumin,Random Urine < 12.0 mg/L (NO RANGE EST.); Microalbumin:Creatinine Ratio UNABLE TO CALCULATE mg/g CRE
[2024-10-14 12:27] LABS: Cholesterol 199 mg/dL (<=200); High Density Lipoprotein 64 mg/dL; Low Density Lipoprotein Calc. 120 mg/dL; Triglycerides 76 mg/dL; Very Low Density Lipoprotein 15 mg/dL (5-40); cholesterol:hdl ratio screen 3.11
[2024-10-14 13:45] LABS: ALB/GLOB Ratio 1.6 RATIO (0.9-2.4); AST(SGOT) 31 U/L (<=31); Alanine Aminotransfer ALT/SGPT 26 U/L (<=34); Albumin, Serum 4.5 g/dL (3.4-4.8); Alkaline Phosphatase 67 U/L (35-104); Anion Gap 10 (5-15); BUN 15 mg/dL (4-19); BUN/Creat Ratio 17.7 RATIO (10-20); Calcium,Total 9.2 mg/dL (7.6-11.0); Carbon Dioxide 26.6 mmol/L (21.0-32.0); Chloride 102 mmol/L (98-108); Creatinine, Serum 0.85 mg/dL (0.70-1.20); EST Glomerular Filtration Rate 70 (>60); Globulin 2.7 g/dL (2.2-4.2); Glucose 98 mg/dL (70-99); Potassium 5.2 mmol/L (3.3-5.1); Protein, Total 7.3 g/dL (5.9-8.4); Sodium Level 139 mmol/L (133-145); Total Bilirubin 0.39 mg/dL (0.00-1.30)
== END | disposition home or self-care (01) ==
LOC: LAB 08:25
PROVIDERS: PCP Family Medicine; Referring Provider Internal Medicine Cardiovascular Disease; Visit Provider Family Medicine
DX: Z01.89 Encounter for other specified special examinations (principal); K58.9 Irritable bowel syndrome, unspecified; E78.5 Hyperlipidemia, unspecified; I10 Essential (primary) hypertension
CPT/HCPCS: 36415; 80053; 80061; 82043; 82570; 85025; 86765

== ENCOUNTER → 2024-10-27 | Outpatient (CLI) | payer MEDICARE, OTHER, SELFPAY ==
[2024-10-29 08:10] LABS: Rubeola IgG Ab > 300.0 AU/mL (Immune >16.4)
== END | disposition home or self-care (01) ==
LOC: LAB 14:20
PROVIDERS: PCP Family Medicine; Referring Provider Family Medicine; Visit Provider Family Medicine
DX: Z01.84 Encounter for antibody response examination (principal)
CPT/HCPCS: 36415; 86765

== ENCOUNTER 2025-04-19 07:48 | Outpatient (CLI) | payer MEDICARE, OTHER, SELFPAY ==
[2025-04-19 08:44] LABS: Hematocrit 39.7 % (37-47); Hemoglobin 13.2 g/dL (12.0-15.0); Immature Granulocytes Count 0.020 X10^3/uL (0.0-0.0); Mean Corp Hgb Conc 33.2 g/dL (32-36); Mean Corpuscular Volume 98.5 fL (81-99); Mean Platelet Vol. 9.6 fl (6.2-12.0); NRBC Flagged by Analyzer 0 % (0-5); Platelet Count 255 K/mm3 (150-450); RBC Distribution Width CV 11.9 % (11.6-14.6); RBC Distribution Width SD 43.2 fl (35.1-43.9); Red Blood Count 4.03 M/mm3 (4.2-5.4); White Blood Count 4.5 K/mm3 (4.4-11.0)
[2025-04-19 09:03] LABS: Creatinine, Urine (random) 49.60 mg/dL (28.00-217.00); Microalbumin,Random Urine < 12.0 mg/L (<20 mg/L)
[2025-04-19 09:35] LABS: AST(SGOT) 40 U/L (<=31); Alanine Aminotransfer ALT/SGPT 58 U/L (<=34); Albumin, Serum 4.3 g/dL (3.4-4.8); Alkaline Phosphatase 84 U/L (35-104); Anion Gap 9 (5-15); BUN 18 mg/dL (4-19); BUN/Creat Ratio 22.5 RATIO (10-20); Calcium,Total 9.3 mg/dL (7.6-11.0); Carbon Dioxide 27.2 mmol/L (21.0-32.0); Chloride 102 mmol/L (98-108); Globulin 3.0 g/dL (2.2-4.2); Glucose 97 mg/dL (70-99); Potassium 4.0 mmol/L (3.3-5.1)
== END 2025-04-19 23:59 | disposition home or self-care (01) ==
PROVIDERS: PCP Family Medicine; Referring Provider Family Medicine; Visit Provider Family Medicine
DX: I10 Essential (primary) hypertension (principal); Z90.710 Acquired absence of both cervix and uterus; Z85.44 Personal history of malignant neoplasm of other female genital organs
CPT/HCPCS: 80053; 82043; 82570; 84443; 85025; 86304